=== PATIENT | female | born 1980 | race Caucasian/White ===

== ENCOUNTER → 2016-10-26 | Outpatient (CLI) | payer OTHER | LOC: NM 08-31 14:30 | DX: R11.0 Nausea (principal); R10.13 Epigastric pain | CPT/HCPCS: 78226; A9537 ==

== ENCOUNTER → 2016-11-06 | Outpatient (CLI) | payer OTHER | LOC: KOH-I 11-01 15:00 | DX: N28.89 Other specified disorders of kidney and ureter (principal); N28.1 Cyst of kidney, acquired | CPT/HCPCS: 74177; Q9962 ==

== ENCOUNTER 2020-07-25 08:00 | Emergency (ER) | payer OTHER ==
[~2020-07-25 08:00] MED LIST: NAPROSYN500 MG PO
[2020-07-25 10:25] LABS: HEMOGLOBIN 13.1 gm/dl (12.3-15.3); RED BLOOD COUNT 4.27 M/UL (4.00-5.10); WHITE BLOOD COUNT 4.8 K/UL (4.5-11.0)
[2020-07-25 10:42] LABS: BUN/CREATININE RATIO 14 (0-10)
[2020-07-25] MEDS ORDERED: TORADOL 10 MG T10 MG PO (14:53)
[2020-07-25] MEDS ORDERED: ONDANSETRON ODT4 MG SL (14:53)
== END 2020-07-25 15:07 | disposition home or self-care (01) ==
LOC: ER1 08:00
PROVIDERS: Physician Assistant
DX: N83.202 Unspecified ovarian cyst, left side (principal); N28.1 Cyst of kidney, acquired; N20.0 Calculus of kidney; F41.9 Anxiety disorder, unspecified; K21.9 Gastro-esophageal reflux disease without esophagitis; Z88.5 Allergy status to narcotic agent; Z87.442 Personal history of urinary calculi; Z79.899 Other long term (current) drug therapy
CPT/HCPCS: 76830; 80053; 81001; 84703; 85025; 96374; 96375; 99284; J1885; J2405; J7030